=== PATIENT | female | born 1980 | race Two or more races ===

== ENCOUNTER 2021-10-09 13:00 | Emergency (ER) | payer OTHER ==
[~2021-10-09] VITALS: Ht 177.8 cm; Wt 131.5 kg
[~2021-10-09 13:00] MED LIST: ABILIFY5 MG; EFFEXOR XR75 MG; KETO10TA2 PO; LEVSIN/SL0.125 MG SL; ORPH100T PO; PEPCID40 MG PO; PHENERGAN25 MG PO; SYNTHROID100 MCG; SYNTHROID300 MCG PO; SYNTHROID50 MCG PO; ZITHROMAX500 MG PO
[2021-10-09] MEDS ORDERED: LASIX40 MG PO (13:46)
[2021-10-09] MEDS ORDERED: AMLODIPINE-OLM1 EACH PO (13:46)
[2021-10-09] MEDS ORDERED: MOTRIN IB200 M1 PO (13:47)
== END 2021-10-09 14:37 | disposition home or self-care (01) ==
LOC: ER 13:00
DX: M72.2 Plantar fascial fibromatosis (principal)

== ENCOUNTER 2022-03-22 16:52 | Emergency (ER) | payer OTHER ==
[~2022-03-22] VITALS: Ht 177.8 cm; Wt 131.5 kg
[~2022-03-22 16:52] MED LIST changes: +AMLODIPINE-OLM1 EACH PO; +LASIX40 MG PO; +MOTRIN IB200 M1 PO
[2022-03-22] MEDS ORDERED: VITAMIN D3125 MC1 PO (17:04)
== END 2022-03-22 20:52 | disposition home or self-care (01) ==
LOC: ER 16:52
DX: K52.89 Other specified noninfective gastroenteritis and colitis (principal); R10.13 Epigastric pain; R50.9 Fever, unspecified; E86.0 Dehydration; Z20.822 Contact with and (suspected) exposure to COVID-19; Z91.040 Latex allergy status

== ENCOUNTER 2022-06-07 18:22 | Emergency (ER) | payer OTHER ==
[~2022-06-07] VITALS: Ht 177.8 cm; Wt 131.5 kg
[~2022-06-07 18:22] MED LIST changes: +VITAMIN D3125 MC1 PO
== END 2022-06-07 22:13 | disposition home or self-care (01) ==
LOC: ER 18:22
DX: A49.3 Mycoplasma infection, unspecified site (principal); Z20.828 Contact with and (suspected) exposure to other viral communicable diseases